=== PATIENT | female | born 1940 | race Caucasian/White ===

== ENCOUNTER 2018-10-25 02:28 | Inpatient (IN) ==
--- NOTE | 2018-10-18 08:15 | EKG Report ---
Test Performed on : 10/18/2018 07:56:56 AM Test Reason : PAT Blood Pressure : / mmHG Vent. Rate : 084 BPM Atrial Rate : 084 BPM P-R Int : 162 ms QRS Dur : 100 ms QT Int : 400 ms P-R-T Axes : 067 005 064 degrees QTc Int : 472 ms Normal sinus rhythm. Normal ECG When compared with ECG of 11-SEP-2014 14:15, No significant change was found Unconfirmed Result
[2018-10-18 08:41] LABS: URINE SOURCE CLEAN CATCH
[2018-10-18 09:14] LABS: BASO# 0.03 X1000 (0.0-0.2); BASO% 0.3 % (0.0-0.8); EOS# 0.24 X1000 (0.0-0.7); EOS% 2.7 % (0.0-10.0); HEMATOCRIT 37.6 % (37.0-47.0); HEMOGLOBIN 12.4 g/dL (12.0-16.0); LYMPH# 1.93 X1000 (1.2-3.4); LYMPH% 21.7 % (20.5-51.1); MCH 30.1 PG (27-31); MCV 91.3 FL (81-99); MONO# 0.49 X1000 (0.11-0.59); MONO% 5.5 % (1.7-9.3); MPV 9.1 FL (7.4-10.4); NEUT# 6.21 X1000 (1.4-6.5); NEUT% 69.8 % (42.2-75.2); PLT 342 X1000 (130-400); RBC 4.12 XMIL (4.2-5.4); RDW 12.3 % (11.5-14.5)
[2018-10-18 09:20] LABS: BILIRUBIN URINE NEGATIVE (NEGATIVE); BLOOD URINE NEGATIVE (NEGATIVE); COLOR YELLOW; GLUCOSE URINE 70 mg/dL (NEGATIVE); KETONE URINE NEGATIVE (NEGATIVE); LEUKOCYTES URINE NEGATIVE (NEGATIVE); NITRITE URINE NEGATIVE (NEGATIVE); PH URINE 5.5; PROTEIN URINE 30 mg/dL (NEGATIVE); SP GRAVITY URINE 1.021; TURBIDITY URINE CLEAR (CLEAR); UROBILINOGEN URINE NORMAL (NORMAL)
[2018-10-18 09:21] LABS: INR 0.94; PROTIME 13.4 Seconds (11.0-16.0)
[2018-10-18 09:22] LABS: PTT 38.6 Seconds (22.3-41.8); UR EPITHELIAL CELLS <10 /HPF (<10); URINE BACTERIA NEGATIVE /HPF; URINE RBC <10 /HPF (<10); URINE WBC <10 /HPF (<10)
[2018-10-18 10:02] LABS: CALCIUM 9.4 mg/dL (8.8-10.2); CREATININE 1.5 mg/dL (0.5-0.9); POTASSIUM 4.3 mmol/L (3.5-5.1)
[2018-10-25] MEDS ORDERED: DIPRIVAN 1% ONE (06:38)
[2018-10-25] MEDS ORDERED: XYLOCAINE-MPF 2% ONE (07:18)
[2018-10-25] MEDS ORDERED: ROBINUL ONE ×2 (07:18→11:36)
[2018-10-25] MEDS ORDERED: QUELICIN (DOSE) ONE (07:18)
[2018-10-25] MEDS ORDERED: PEPCID ONE (08:25)
[2018-10-25] MEDS ORDERED: REGLAN ONE (08:25)
[2018-10-25] MEDS ORDERED: COLACE ONE (08:25)
[2018-10-25] MEDS ORDERED: LYRICA ONE (08:26)
[2018-10-25] MEDS ORDERED: CELEBREX ONE (08:26)
[2018-10-25] MEDS ORDERED: LR 1,000 ML ONE (08:26)
[2018-10-25] MEDS ORDERED: KEFZOL 1 GM/D5W 1 GM/50 ML IVPB ONE (08:26)
[2018-10-25] MEDS ORDERED: HUMULIN R SUBQ ONE (09:15)
[2018-10-25] MEDS ORDERED: CYKLOKAPRON 1,000 MG/NS 1,000 MG/100 ML IVPB ONE (09:52)
[2018-10-25] MEDS ORDERED: MARCAINE 0.25% PF ONE (09:52)
[2018-10-25] MEDS ORDERED: TORADOL ONE (09:52)
[2018-10-25] MEDS ORDERED: SODIUM CHLORIDE 0.9% ONE (09:52)
[2018-10-25] MEDS ORDERED: DURAMORPH ONE (09:52)
[2018-10-25] MEDS ORDERED: NEOSPORIN G.U. IRRIGANT ONE (09:53)
[2018-10-25] MEDS ORDERED: EXPAREL 1.3% ONE (09:53)
[2018-10-25] MEDS ORDERED: OFIRMEV 1000 MG/ISOTONIC SOLN 1,000 MG/100 ML BOTTLE ONE (11:12)
[2018-10-25] MEDS ORDERED: DECADRON ONE (11:12)
[2018-10-25] MEDS ORDERED: ZOFRAN ONE (11:12)
[2018-10-25] MEDS ORDERED: NEOSTIGMINE ONE (11:36)
[2018-10-25] MEDS ORDERED: DILAUDID ONE (11:38)
[2018-10-25] MEDS ORDERED: EPHEDRINE ONE (11:45)
[2018-10-25 11:48] LABS: URINE SOURCE CATH
[2018-10-25 11:57] LABS: BILIRUBIN URINE NEGATIVE (NEGATIVE); BLOOD URINE NEGATIVE (NEGATIVE); COLOR YELLOW; GLUCOSE URINE >1000 mg/dL (NEGATIVE); KETONE URINE NEGATIVE (NEGATIVE); LEUKOCYTES URINE NEGATIVE (NEGATIVE); NITRITE URINE NEGATIVE (NEGATIVE); PH URINE 5.5; PROTEIN URINE TRACE mg/dL (NEGATIVE); SP GRAVITY URINE 1.019; TURBIDITY URINE CLEAR (CLEAR); UR EPITHELIAL CELLS <10 /HPF (<10); URINE BACTERIA NEGATIVE /HPF; URINE RBC <10 /HPF (<10); URINE WBC <10 /HPF (<10); UROBILINOGEN URINE NORMAL (NORMAL)
[2018-10-25] MEDS ORDERED: NS 1,000 ML ONE (13:06)
--- NOTE | 2018-10-25 13:21 | Diag Imaging Result Doc PS360 ---
EXAM: SHOULDER 1 VIEW RIGHT 10/25/2018 HISTORY: post rt reverse total shoulder TECHNIQUE: Right shoulder portable AP COMMENT: There is a total shoulder arthroplasty. There is no evidence of fracture or dislocation. There are degenerative changes in the acromioclavicular joint. IMPRESSION: Postsurgical change and osteoarthritis. Electronically signed by Derek Nolen 10/25/2018 1:19 PM
[2018-10-25] MEDS ORDERED: MORPHINE IV PRN ×3 (13:45)
[2018-10-25] MEDS ORDERED: OXY IR PO PRN ×2 (13:45)
[2018-10-25] MEDS: ZOFRAN PO PRN (14:26)
[2018-10-25] MEDS: HUMALOG SUBQ SCH ×2 (15:03→17:18)
[2018-10-25] MEDS: NS 1,000 ML IV SCH (15:07)
[2018-10-25] MEDS: ASPIRIN PO SCH (17:12)
[2018-10-25] MEDS: MOBIC PO SCH (17:13)
[2018-10-25] MEDS: NEURONTIN PO SCH (17:13)
[2018-10-25] MEDS: CELEXA PO SCH (17:13)
[2018-10-25] MEDS: PRAVACHOL PO SCH (17:14)
[2018-10-25] MEDS: TYLENOL PO SCH ×2 (17:18→23:00)
--- NOTE | 2018-10-25 18:02 | OPERATIVE NOTE ---
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 PROCEDURES: Right reverse shoulder arthroplasty with DePuy Delta Xtend size 12 press-fit stem, a 38 x 6 humeral cup, and a 38 eccentric glenosphere, and a standard metaglene. SURGEON: Edson Roberson MD. ENGINEERING JOB TITLES: FELIPE Dawson. SEC[employer]OLOGY PROFESSOR: Tavon Watkins RN. ANESTHESIA: General. IV FLUIDS: 1000 mL lactated Ringer. ESTIMATED BLOOD LOSS: 150 mL. COMPLICATIONS: None. INDICATION: The patient is a 77-year-old female with a chronic history of pain to her right shoulder. She had radiographic findings consistent with glenoid arthritis and rotator cuff tear and recommendation to proceed with right reverse shoulder arthroplasty was offered. Risks and benefits of surgery were explained, including the risks of anesthesia, , bleeding, infection, failure to relieve pain, postoperative stiffness, nerve injury, blood clots, and other imponderables. All questions were answered. The patient and family wish to proceed with surgery. DETAILS OF OPERATION: The patient was taken to the operating room and placed supine on the operating table. Once adequate anesthesia was obtained, the patient was placed in semi-Bender beach-chair position. The right shoulder was subsequently prepped and draped in usual sterile fashion. A deltopectoral incision made with skin knife. Medial and lateral skin envelopes developed. Hemostasis was obtained using electrocautery. The deltopectoral interval was then developed and retractors then placed. Attention then turned to the subscapularis tendon approximately 1 cm medial to its insertion and it was released. Stay suture was placed in the medial aspect. After this had been performed, the shoulder was then dislocated anteriorly. Sequential reaming was then conducted up to size 12. An intramedullary guide with a proximal humeral cutting block was pinned in position at approximately 15 degrees of retroversion. After this had been performed, a protective disk was then placed on the proximal humerus and attention then turned to the glenoid. Circumferential dissection with a deep knife. A guide was then placed in position. Guide pin was then placed. Reaming was then conducted. The central hole was then dilated and guide pin was removed. The wound was copiously irrigated with antibiotic pulsatile lavage. A standard metaglene was then impacted into position. Two locking screws and 1 nonlocking screws were placed and had good fixation. The wound was copiously irrigated once again with antibiotic pulsatile lavage. A 38 eccentric glenosphere was then placed with the eccentricity placed inferiorly. Attention then turned to the proximal humerus where the intramedullary guide was placed in position. The proximal humerus was then reamed. The wound was copiously irrigated with antibiotic pulsatile lavage. A size 12 press-fit stem was impacted with autologous impaction bone grafting. It had good fit. Trial cup size was then placed and a 38 +6 appeared to be correct size. The trial cup was removed. The wound was copiously irrigated. A size 38 +6 humeral cup was then impacted on the stem. The shoulder was reduced, carried through out range of motion and had excellent stability and range of motion. Exparel was placed in deep soft tissue. The wound was copiously irrigated. A #2 FiberWire was used to repair the subscapularis tendon. The remaining Exparel was placed in the deep soft tissue, as well as the subcutaneous tissue. The wound was copiously once again with antibiotic pulsatile lavage. Then 2- 0 Vicryl was used to repair the subcutaneous tissue and skin with running 2-0 Prolene. Benzoin and Steri-Strips were applied. Adaptic, sterile 4 x 4's, ABD pad, and tape were applied to the right shoulder, followed by a shoulder immobilizer. All counts were correct. Patient tolerated the procedure well and was transferred to the recovery room in stable condition. cc: Edson Roberson MD
[2018-10-25] MEDS: KEFZOL 1 GM/D5W 1 GM/50 ML IVPB IV SCH (19:31)
[2018-10-25] MEDS: BASAGLAR SUBQ SCH (23:52)
[2018-10-25] MEDS: COLACE PO SCH (23:52)
[2018-10-26] MEDS: NS 1,000 ML IV SCH ×2 (03:48→15:52)
[2018-10-26] MEDS: KEFZOL 1 GM/D5W 1 GM/50 ML IVPB IV SCH (03:48)
[2018-10-26 06:10] LABS: HEMATOCRIT 30.2 % (37.0-47.0); HEMOGLOBIN 9.7 g/dL (12.0-16.0)
[2018-10-26 06:24] LABS: CALCIUM 8.4 mg/dL (8.8-10.2); CREATININE 1.3 mg/dL (0.5-0.9); POTASSIUM 5.1 mmol/L (3.5-5.1)
--- NOTE | 2018-10-26 06:38 | PROGRESS NOTE ---
DATE: 10/26/2018 SUBJECTIVE: The patient is a 77-year-old female who is 1 day status post right reverse shoulder arthroplasty. She is currently resting comfortably. OBJECTIVE: Patient's right upper extremity dressing is intact. She is neurovascularly distally and has good shank piece tacker strength. LABORATORY STUDIES: Her Hemoglobin and hematocrit are pending. IMPRESSION: Postoperative day #1 status post right reverse total shoulder arthroplasty. PLAN: At this point, her dressing has been changed, Maria discontinued and Hep-Locked her IV. We will begin some mobilization physical therapy. It is felt the patient would benefit from inpatient rehabilitation and will consult director of consulting services for discharge planning. cc: Edson Roberson MD
[2018-10-26] MEDS: OXY IR PO PRN ×3 (06:43→18:52)
[2018-10-26] MEDS: TYLENOL PO SCH ×3 (06:44→16:18)
[2018-10-26] MEDS: HUMALOG SUBQ SCH ×3 (06:44→16:18)
[2018-10-26] MEDS: SYNTHROID PO SCH (06:47)
[2018-10-26] MEDS: ZOFRAN PO PRN (06:47)
[2018-10-26] MEDS: MOBIC PO SCH (08:30)
[2018-10-26] MEDS: CELEXA PO SCH (08:30)
[2018-10-26] MEDS: NEURONTIN PO SCH (08:30)
[2018-10-26] MEDS: ASPIRIN PO SCH (08:30)
[2018-10-26] MEDS: PERIDEX MT SCH (08:30)
[2018-10-26] MEDS: PRAVACHOL PO SCH (08:30)
[2018-10-26] MEDS: COLACE PO SCH (08:31)
--- NOTE | 2018-10-26 09:28 | Diag Imaging Result Doc PS360 ---
EXAM: CHEST-1 VIEW 10/26/2018 HISTORY: REHAB TECHNIQUE: AP chest COMMENT: There is platelike atelectasis in the lingula. Otherwise the appearance the chest has not changed since 09/11/2014. There is a total shoulder arthroplasty on the right. IMPRESSION: Subsegmental atelectasis on the left. Electronically signed by Derek Noeln 10/26/2018 9:25 AM
[2018-10-26] MEDS: HUMULIN R SUBQ SCH ×2 (16:18→21:50)
[2018-10-26] MEDS ORDERED: INSULIN PEN NEEDLES ONE (21:46)
[2018-10-26] MEDS: BASAGLAR SUBQ SCH (21:49)
[2018-10-27] MEDS: COLACE PO SCH ×3 (02:01→22:30)
[2018-10-27] MEDS: PERIDEX MT SCH ×3 (02:01→22:30)
[2018-10-27] MEDS: OXY IR PO PRN ×3 (03:27→16:54)
[2018-10-27 05:46] LABS: HEMATOCRIT 30.3 % (37.0-47.0); HEMOGLOBIN 9.8 g/dL (12.0-16.0)
[2018-10-27] MEDS: HUMULIN R SUBQ SCH ×4 (06:06→22:29)
[2018-10-27] MEDS: SYNTHROID PO SCH (06:06)
[2018-10-27] MEDS: HUMALOG SUBQ SCH ×3 (06:07→18:47)
--- NOTE | 2018-10-27 06:16 | PROGRESS NOTE ---
DATE: 10/27/2018 SUBJECTIVE: Patient is a 77-year-old female who is 2 days status post right reverse shoulder arthroplasty. She is currently resting comfortably this morning. PHYSICAL EXAMINATION: The patient's right upper extremity wound looks good. There is no signs or symptoms of infection. She is neurovascularly intact distally. Good or nurse manager strength. Able to flex all her fingers. LAB DATA: Her hemoglobin is 9.8, hematocrit 30.3. IMPRESSION: Postoperative day #2 status post right reverse shoulder arthroplasty. PLAN: At this point, will continue with mobilizing physical therapy. We will plan on discharge to rehab tomorrow. cc: Edson Roberson MD
--- NOTE | 2018-10-27 06:50 | DISCHARGE SUMMARY ---
ADMISSION DATE: 10/25/2018 DISCHARGE DATE: 10/28/2018 ADMITTING DIAGNOSIS: Right glenohumeral arthritis with rotator cuff tear. POSTOPERATIVE DIAGNOSIS: Right glenohumeral arthritis with rotator cuff tear status post right reverse total shoulder arthroplasty. BRIEF HISTORY: The patient is a pleasant 77-year-old female with a history of pain and discomfort in her right shoulder. She has undergone x-rays with an MRI which revealed rotator cuff and some degenerative glenohumeral arthritis. Given the patient's findings, recommendation to proceed with right reverse total shoulder arthroplasty was offered. Risks and benefits of surgery are explained and all questions were answered. HOSPITAL COURSE TREATMENT: Patient admitted to this hospital and underwent right reverse shoulder arthroplasty. Patient tolerated the procedure well. She had an uneventful postoperative course. By postoperative day #2, her H and H stabilized to 9.8 and 30.3. It was felt the patient would benefit from inpatient rehabilitation. The patient and family were agreeable to this. Prior to discharge, the patient is afebrile, tolerating a regular diet. Pain was well controlled on p.o. medication and her wound looked good. There are no signs or symptoms of infection. DISCHARGE MEDICATIONS: OxyIR 5 mg 1 p.o. q.4 hours p.r.n. pain. For remaining medications, please see medication list. DISCHARGE INSTRUCTIONS: 1. Patient will be discharged for inpatient rehabilitation. 2. Consult physical therapy with passive range of motion of the right shoulder, passive forward flexion, external rotation up to 20 degrees, active range of motion elbow, wrist and fingers. 3. Discontinue suture with 11/07/2018. 4. Follow up in the office after discharge from rehab. cc: Edson Roberson MD
[2018-10-27] MEDS: MOBIC PO SCH (09:35)
[2018-10-27] MEDS: NEURONTIN PO SCH (09:36)
[2018-10-27] MEDS: CELEXA PO SCH (09:36)
[2018-10-27] MEDS: PRAVACHOL PO SCH (09:36)
[2018-10-27] MEDS: ASPIRIN PO SCH (09:36)
[2018-10-27] MEDS: TYLENOL PO SCH ×3 (12:09→22:28)
[2018-10-27] MEDS: BASAGLAR SUBQ SCH (22:28)
[2018-10-28 06:45] LABS: HEMATOCRIT 33.2 % (37.0-47.0); HEMOGLOBIN 10.7 g/dL (12.0-16.0)
[2018-10-28] MEDS: TYLENOL PO SCH (06:46)
[2018-10-28] MEDS: SYNTHROID PO SCH (06:46)
[2018-10-28] MEDS: HUMULIN R SUBQ SCH (06:48)
[2018-10-28] MEDS: HUMALOG SUBQ SCH (06:48)
[2018-10-28 07:46] VITALS: BP 136/61
[2018-10-28] MEDS: MOBIC PO SCH (09:43)
[2018-10-28] MEDS: COLACE PO SCH (09:43)
[2018-10-28] MEDS: PRAVACHOL PO SCH (09:43)
[2018-10-28] MEDS: NEURONTIN PO SCH (09:44)
[2018-10-28] MEDS: ASPIRIN PO SCH (09:44)
[2018-10-28] MEDS: OXY IR PO PRN (09:44)
[2018-10-28] MEDS: CELEXA PO SCH (09:44)
[2018-10-28] MEDS: PERIDEX MT SCH (09:45)
[2018-10-28] MEDS ORDERED: MILK OF MAGNESIA PO ONE (10:02)
== END 2018-10-28 10:50 | DRG 483 ==
LOC: SURHOLD 02:28 → 4N 10:43
PROVIDERS: ADMIT Orthopaedic Surgery Adult Reconstructive Orthopaedic Surgery; ATTEND Orthopaedic Surgery Adult Reconstructive Orthopaedic Surgery
CPT/HCPCS: 71010; 71045; 73020; 80048; 81001; 82947; 82948; 85014; 85018; 85025; 85610; 85730; 86850; 86900; 86901; 88305; 88311; 93005; 93010; 94761; 97110; 97116; 97162; 97530; A9270; C1713; C9290; J0131; J0330; J0690; J1100; J1170; J1815; J1885; J2274; J2275; J2405; J7030; J7120; Q9974; S0020; XXXXX